=== PATIENT | male | born 1960 | race Caucasian/White ===

== ENCOUNTER 2016-12-12 19:34 | Emergency (ER) | payer OTHER ==
[2016-12-12 21:15] VITALS: BP 136/95
[2016-12-12] MEDS ORDERED: Diphtheria,Pertussis(Acell),Tetanus Vaccine 0.5 ML SDV IM ONE (21:21)
--- NOTE | 2016-12-12 21:22 | EDM.PDOC ---
ED HPI GENERAL MEDICAL PROBLEM - General Chief Complaint: Laceration Stated Complaint: CAUGHT FINGER IN BOAT LIFT GEAR Time Seen by Provider: 12/12/16 21:15 Source of Information: Reports: Patient, Family History Limitations: Reports: No Limitations - History of Present Illness INITIAL COMMENTS - FREE TEXT/NARRATIVE: pt caught his left index finger in a lift gear with a smashing type injury. Onset: Sudden Duration: Hour(s): Location: Reports: Lower Extremity, Left Associated Symptoms: Reports: No Other Symptoms Left 2-Index finger Pain Score (Numeric/FACES): 4 - Related Data Allergies Allergy/AdvReac Type Severity Reaction Status Date / Time No Known Allergies Allergy Verified 08/20/14 18:30 Home Meds: Home Meds NK [No Known Home Meds] 12/12/16 [History] Social & Family History - Tobacco Use Smoking Status *Q: Never Smoker - Recreational Drug Use Recreational Drug Use: No Recreational Drug Type: Reports: Other (see below) (marijuana use over 30 yrs ago) Recreational Drug Last Use: over 30 yrs ago, marijuana ED ROS GENERAL - Review of Systems Review Of Systems: See Below Constitutional: Reports: No Symptoms HEENT: Reports: No Symptoms Respiratory: Reports: No Symptoms Cardiovascular: Reports: No Symptoms Endocrine: Reports: No Symptoms GI/Abdominal: Reports: No Symptoms : Reports: No Symptoms Musculoskeletal: Reports: Other (pain in the left index finger tip. ) ED EXAM, SKIN/RASH Exam: See Below Text/Narrative:: pt had a smashing injury to the left index finger and has a laceration and pain at the tip. Exam Limited By: No Limitations General Appearance: Alert Extremities: Other ( left index finger was caught in a boat lift gear. he has normal motion and sensation. A xray was obtained on the finger which did not show a fracture. The wound on the outside of the finger was cleansed well and infiltrated with lidocaine. This superficial flap was tacked down, He was warned that some of this might peel back. ) Neurological: Alert, Oriented Course - Vital Signs Last Recorded V/S: Last Vital Signs Temp 36 C 12/12/16 21:13 Pulse 73 12/12/16 21:13 Resp 18 12/12/16 21:13 BP 136/95 H 12/12/16 21:13 Pulse Ox 97 12/12/16 21:13 - Orders/Labs/Meds Orders: Active Orders 24 hr Category Date Time Status Vaccines to be Administered [RC] PER UNIT ROUTINE Care 12/12/16 21:21 Active Fingers Second Digit Lt F1 [CR] Stat Exams 12/12/16 21:20 Taken Meds: Medications Discontinued Medications Generic Name Dose Route Start Last Admin Trade Name Charbel PRN Reason Stop Dose Admin Bacitracin 1 dose 12/12/16 22:12 Bacitracin Oint 1 Gm TOP 12/12/16 22:13 ONETIME ONE Diphtheria/Tetanus/Acell Pertussis 0.5 ml 12/12/16 21:21 12/12/16 21:37 Adacel IM 12/12/16 21:22 0.5 ml .ONCE ONE Administration Lidocaine HCl 5 ml 12/12/16 22:11 Xylocaine-Mpf 1% INJECT 12/12/16 22:12 ONETIME ONE - Re-Assessments/Exams Free Text/Narrative Re-Assessment/Exam: 12/12/16 23:02 after stiting the wound was dressed with bacatracin and a over the finger splint was applied. Departure - Departure Time of Disposition: 23:03 Disposition: Home, Self-Care 01 Condition: Fair Clinical Impression: Laceration of index finger - Discharge Information Forms: ED Department Discharge Care Plan Goals: keep dry, sr in 7-8 days, over the finger splint keflex 500mg tid for 5 days. motrin 600mg as needed for pain. . - My Orders Last 24 Hours: My Active Orders 12/12/16 21:20 Fingers Second Digit Lt F1 [CR] Stat 12/12/16 21:21 Vaccines to be Administered [RC] PER UNIT ROUTINE - Assessment/Plan Last 24 Hours: My Active Orders 12/12/16 21:20 Fingers Second Digit Lt F1 [CR] Stat 12/12/16 21:21 Vaccines to be Administered [RC] PER UNIT ROUTINE
[2016-12-12] MEDS ORDERED: Bacitracin Oint 1 GM U/D Packet TOP ONE (22:12)
--- NOTE | 2016-12-14 10:03 | CR ---
Soft tissue swelling left second digit. Tiny ossific density dorsal aspect may be degenerative only or a tiny avulsion fragment. This is at the DIP joint.
== END 2016-12-12 23:27 | disposition home or self-care (01) ==
LOC: JP.ED 19:34
DX: S61.211A Laceration without foreign body of left index finger without damage to nail, initial encounter (principal); Z23 Encounter for immunization; W23.0XXA Caught, crushed, jammed, or pinched between moving objects, initial encounter
CPT/HCPCS: 29130; 73140-26-F1; 73140-F1; 90471; 90715; 99284-25

== ENCOUNTER 2021-01-18 15:05 | Emergency (ER) | payer OTHER ==
[2021-01-18 15:22] VITALS: BP 158/92; PULSE 94
[2021-01-18] MEDS ORDERED: Proparacaine 0.5% Ophth Soln 15 ML Bottle EYEBOTH STA (15:28)
--- NOTE | 2021-01-18 16:02 | EDM.PDOC ---
ED HPI GENERAL MEDICAL PROBLEM - General Chief Complaint: Eye Problems Stated Complaint: OBJECT IN L EYE Time Seen by Provider: 01/18/21 15:29 Source of Information: Reports: Patient, RN Notes Reviewed History Limitations: Reports: No Limitations - History of Present Illness INITIAL COMMENTS - FREE TEXT/NARRATIVE: 60-year-old gentleman presents emergency department today with foreign body to his left eye he believes he may have gotten a piece of foreign linoleum type shaving when he was cleaning up went into his left eye he has been unable to get it out he still has a foreign body sensation no troubles with vision - Related Data Allergies Allergy/AdvReac Type Severity Reaction Status Date / Time No Known Allergies Allergy Verified 01/18/21 15:39 Home Meds: Home Meds NK [No Known Home Meds] 12/12/16 [History] Past Medical History Gastrointestinal History: Reports: GI Bleed Musculoskeletal History: Reports: Other (See Below) Other Musculoskeletal History: R shoulder pain - Past Surgical History GI Surgical History: Reports: Jun Fundoplication Social & Family History - Caffeine Use Caffeine Use: Reports: None ED ROS GENERAL - Review of Systems Review Of Systems: See Below HEENT: Reports: Eye Discharge, Eye Pain. Denies: Vision Change ED EXAM GENERAL W FULL EYE - Physical Exam Exam: See Below Exam Limited By: No Limitations General Appearance: Alert, WD/WN, No Apparent Distress Eye Exam: Right Eye: Normal Inspection, Left Eye: Conjunctival Injection, Bilateral Eye: EOMI, PERRL Eyelids: Bilateral: Normal Appearance Conjunctiva & Sclera: Left: Conjunctival Edema, Injected Cornea Exam: Left: Corneal Abrasion Extraocular Movements: Bilateral: Intact Pupils: Normal Accommodation Pupillary Size: Bilateral: 4 mm Pupillary Reaction: Bilateral: Brisk Anterior Chamber: Bilateral: Normal Appearance Course - Vital Signs Last Recorded V/S: Last Vital Signs Temp 97.8 F 01/18/21 15:40 Pulse 94 01/18/21 15:40 Resp 16 01/18/21 15:40 BP 158/92 H 01/18/21 15:40 Pulse Ox 97 01/18/21 15:40 - Orders/Labs/Meds Meds: Medications Discontinued Medications Generic Name Dose Route Start Last Admin Trade Name Freq PRN Reason Stop Dose Admin Proparacaine HCl 1 ml 01/18/21 15:28 Proparacaine 0.5% Ophth Soln 15 Ml Bottle EYEBOTH 01/18/21 15:29 NOW STA Departure - Departure Time of Disposition: 16:02 Disposition: Home, Self-Care 01 Condition: Fair Clinical Impression: Corneal abrasion Qualifiers: Encounter type: initial encounter Laterality: left Qualified Code(s): S05.02XA - Injury of conjunctiva and corneal abrasion without foreign body, left eye, initial encounter - Discharge Information Instructions: Eye Foreign Body, [id number], Corneal Abrasion Referrals: PCP,None [Primary Care Provider] - Additional Instructions: Continue taking antibiotics till reevaluated by eye care provider call return to the emergency department worsening of symptoms trying to get your eye care provider on Wednesday or Wednesday of this upcoming week Sepsis Event Note (ED) - Evaluation Sepsis Screening Result: No Definite Risk - Focused Exam Vital Signs: Vital Signs Temp Pulse Resp BP Pulse Ox 01/18/21 15:40 97.8 F 94 16 158/92 H 97 01/18/21 15:21 97.8 F 94 16 158/92 H 97 - Assessment/Plan Plan: Assessment Acuity = acute Site and laterality = corneal abrasion left eye Etiology = foreign body Manifestations = none Location of injury = Home Lab values = none Plan His tetanus is up-to-date he is placed on gentamicin ophthalmic drops he will follow-up with his eye care provider in 2 to 3 days This note was dictated using [employer] voice recognition software please call with any questions on syntax or grammar.
== END 2021-01-18 16:16 | disposition home or self-care (01) ==
LOC: JP.ED 15:05
DX: S05.02XA Injury of conjunctiva and corneal abrasion without foreign body, left eye, initial encounter (principal); X58.XXXA Exposure to other specified factors, initial encounter
CPT/HCPCS: 99283; A9270

== ENCOUNTER 2022-10-06 08:03 | Emergency (ER) | payer OTHER, BC ==
[2022-10-06] MEDS ORDERED: HYDROmorphone 1 MG/ML Syringe IVPUSH ONE ×2 (08:10→09:56)
[2022-10-06] MEDS ORDERED: ceFAZolin 2 GM in Premix Bag 1 BAG IV ONE (08:12)
[2022-10-06] MEDS ORDERED: Sodium Chloride 0.9% 1,000 ML IV SCH (08:15)
[2022-10-06] MEDS ORDERED: Lidocaine 2% Jelly 10 ML Urojet MUCMEM ONE (08:55)
[2022-10-06 09:18] LABS: ESTIMATED GFR 75 mL/min (>60)
[2022-10-06 10:41] VITALS: BP 143/83; PULSE 59
== END 2022-10-06 11:23 ==
LOC: JP.ED 08:03
DX: S62.635A Displaced fracture of distal phalanx of left ring finger, initial encounter for closed fracture (principal); S62.613A Displaced fracture of proximal phalanx of left middle finger, initial encounter for closed fracture; S61.211A Laceration without foreign body of left index finger without damage to nail, initial encounter; W27.0XXA Contact with workbench tool, initial encounter
CPT/HCPCS: 36415; 73130; 80053; 85025; 96365; 96375; 96376; 99284; J0690; J1170; J7030; 99285